=== PATIENT | female | born 1975 | race Caucasian/White ===

== ENCOUNTER 2017-01-31 15:34 | Emergency (ER) | payer BC ==
--- NOTE | ~2017-01-31 | CR72 ---
[facility] A Service of [facility] & [facility] RADIOLOGY TEXT RESULTS PATIENT: ODELL EUCEDA LOCATION: [facility] : 75 UNIT #: [id number] AGE: [address]: Michael Baker MD SEX: F ORDER DR: [id number] [facility] [address] [place], [place] [address] [id number] E MR#: [id number] Acc #: [id number] NAME: ODELL EUCEDA : 1975 SEX: F STUDY DATE/TIME: 01/31/2017 16:30 UNIT: [facility] ROOM: STUDY DESCRIPTION: CR Chest Single View Portable Attending Physician: Michael Baker M.D. Ordering Physician: Michael Baker M.D. Primary Care Physician: Vincent Rico M.D. MEDICAL IMAGING REPORT This report is preliminary unless electronic signature is present EXAMINATION AP portable chest. DATE 01/31/2017 HISTORY Shortness of breath with midchest pain, cough and congestion for 3 days. COMPARISON PA and lateral chest, 04/20/2016. FINDINGS A single AP portable view of the chest shows both lungs to be clear. The heart is normal in size. The mediastinal contour is normal. No significant bone abnormalities are seen. IMPRESSION Normal AP portable chest. Dictated by... Katarina Martinez M.D. THIS IS AN ELECTRONICALLY VERIFIED REPORT Katarina Martinez M.D. at 02/01/2017 8:34 AM AQUILES/spencer TD: 01/31/2017 23:05 JOB #: [id number] MEDICAL IMAGING REPORT Page 1 of 1 COPY
[~2017-01-31 15:34] MED LIST: AMOXICILLIN875 MG PO; BELSOMRA15 MG PO; BREO ELLIPTA 11 EACH INH; CLARITIN10 M1 PO; FLEXERIL10 MG PO; FLONASE 0.05% N16 G1; HYDROCHLOROTHIA25 MG PO; KLONOPIN1 M1 PO; MONTELUKAST SOD10 MG PO; NO MEDICATIONS; SEROQUEL PO
[2017-01-31 16:22] LABS: BASOPHIL# 0.1 X10e3 (0-0.3); BASOPHIL% 1.3 % (0-2.5); EOSINOPHIL# 0.1 X10e3 (0-0.7); HEMATOCRIT 40.2 % (35.0-45.0); HEMOGLOBIN 13.5 gm/dL (12.0-16.0); LYMPHOCYTE# 2.5 X10e3 (1.0-3.5); LYMPHOCYTE% 27.1 % (17.0-45.0); MEAN CELL VOLUME 81.5 FL (83-96); MEAN CORPUSCULAR HEMOGLOBIN 27.3 PG (28-34); MEAN CORPUSCULAR HGB CONC 33.5 g/dL (30-36); MEAN PLATELET VOLUME 7.9 FL (6.5-11.5); MONOCYTE# 0.6 X10e3 (0-1.0); MONOCYTE% 6.2 % (3.0-12.0); NEUTROPHIL% 64.4 % (40-75); PLATELET COUNT 253 X10e3 (140-420); RED BLOOD COUNT 4.93 X10e (3.90-5.30); RED CELL DISTRIBUTION WIDTH 14.2 % (11.0-15.5); WHITE BLOOD COUNT 9.3 X10e3 (4.0-10.5)
[2017-01-31 16:28] LABS: DIFF IND NO
[2017-01-31 16:45] LABS: BUN/CREATININE RATIO 24.28; CREATININE SERUM 0.7 mg/dL (0.6-1.4); GLOM FILT RATE Estimated 107.6 mL/min (>60); POTASSIUM 3.8 mmol/L (3.5-5.1)
== END 2017-01-31 17:41 | disposition home or self-care (01) ==
LOC: CED 15:34
PROVIDERS: Emergency Medicine
DX: J45.901 Unspecified asthma with (acute) exacerbation (principal); F17.200 Nicotine dependence, unspecified, uncomplicated; I10 Essential (primary) hypertension
CPT/HCPCS: 36415; 71010; 80048; 85025; 94640; 96374; 99284; J2930